=== PATIENT | male | born 2000 ===

== ENCOUNTER 2025-08-06 12:53 | Inpatient (IN) | payer SELFPAY ==
--- OUTSIDE RECORDS SUMMARY | 2025-08-05 16:00 | XMS_ITS | Encounter Summary ---
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 Collaboration (CKD-EPI) equation refit without adjustment for race. BUN/Creatinine Ratio 11.3 LAB CHEMISTRY METHOD 08/05/2025 5:22 PM [facility] Calcium 8.9 8.5 - 10.5 mg/dL LAB CHEMISTRY METHOD 08/05/2025 5:22 PM [facility] AST (SGOT) 94(H) 10 - 42 unit/L LAB CHEMISTRY METHOD 08/05/2025 5:22 PM [facility] ALT (SGPT) 201(H) 10 - 60 unit/L LAB CHEMISTRY METHOD 08/05/2025 5:22 PM [facility] Alkaline Phosphatase 64 42 - 121 unit/L LAB CHEMISTRY METHOD 08/05/2025 5:22 PM [facility] Total Protein 7.1 6.0 - 8.0 g/dL LAB CHEMISTRY METHOD 08/05/2025 5:22 PM [facility] Albumin 3.9 3.2 - 5.0 g/dL LAB CHEMISTRY METHOD 08/05/2025 5:22 PM [facility] Total Bilirubin 0.5 0.0 - 1.4 mg/dL LAB CHEMISTRY METHOD 08/05/2025 5:22 PM [facility] Blood Venous blood specimen / Unknown Venipuncture / Unknown 08/05/2025 4:20 PM EST 08/05/2025 4:43 PM EST us Oumar Zamora MD LAB BLOOD ORDERABLES Final Resul t [facility] [address] [place] [address], documented in this encounter Visit Diagnoses Diagnosis Suicidal ideation- Primary documented in this encounter Orders Consult Count Last Ordered Date First Orde red Date IP CONSULT TO CONSULTANT NURSE 1 08/05/2025 documented in this encounter Care Teams Commissioned Sales Associate Relationship Specialty Start Date End Date Physician, No Pcp PCP - General 08/05/25 documented as of this encounter
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
[2025-08-06 14:02] VITALS: BMI 38.4
[2025-08-06 14:54] VITALS: BP 137/79; PULSE 63; O2SAT 97
--- OUTSIDE RECORDS SUMMARY | 2025-08-06 15:37 | XMS_ITS | Clinical Summary ---
Author Organization [facility] [address] [facility] Address [address] [place] [phone] Phone Care Team Providers Care Boot Maker Name Role Phone Physician, No Pcp Primary Care Provider Unavaila ble Allergies Active Allergy Reactions Criticality Noted Date Comments Bee Venom Protein (Honey Bee) Anaphylaxis High 08/05 Medications No known medications Encounters Date Type Department Care Team Description 08/05/2025 4:00 PM EST - 08/06/2025 1:01 PM EST Emergency [facility] Emergency [address] [place] [id number] Oumar Zamora MD Kokkinos, Erika, MD Linnerooth, Warren, MD Suicidal ideation (Primary Dx) Discharge Disposition: Psychiatric Hospital from Last 3 Months Medical History Medical History Date Comments Bee sting allergy 12/26/2017 DX:Bee sting a llergy Adhd Bipolar disorder, unspecifie d ([facility] V24, [facility] V28) Social History Tobacco Use Types Packs/Day Years Used Date Smoking Tobacco: Never Smokeless Tobacco: Never Alcohol Use Standard Drinks/Week Comments No 0 (1 standard drink = 0.6 oz pur e alcohol) Sex and Gender Information Value Date Recorded Sex Assigned at Not on file Legal Sex Male 2:06 AM EST Gender Identity Not on file Sexual Orientation Not on file Obstetrics History Last Filed Vital Signs Vital Sign Reading [...] Mass Index 33 08/05/2025 4:45 PM EST Plan of Treatment Health Maintenance Due Date Last Done Comments DTaP,Tdap,and Td Vaccines (6 - Td or Tdap) 06/27/2023 06/27/2013, 03/16/2006, 03/04/2003, Additional history exists Depression Screening 10/02/2024 COVID-19 Vaccine ( season) 2025 Influenza Vaccine (#1) 2025 7, 08/10/2016, 08/06/2015, Additional history exists Cholesterol Screening (Lipid Panel) 08/05/2025 HIV Screening 08/05/2025 Hepatitis C Screening 08/05/2025 Social Influencers of Health Screening 08/05/2025 RSV Immunization Adult Patients (1 - 1-dose 75+ series) 2076 Pneumococcal Vaccine: Pediatrics (0 to 5 Years) and At-Risk Patients (6 to 49 Years) Aged Out 2001 No longer eligible based on patient's age to complete this topic HIB Vaccines Completed 01/16/2003, 12/31, 10/04/2002, Additional history exists Hepatitis B Vaccines Completed 08/11/2003, 10/04/2002, 2001 Hepatitis A Vaccines Completed 07/22/2004, 08/11/20 IPV Vaccines Completed 03/16/2006, 12/31, 10/04/2002, Additional history exists MMR Vaccines Completed 03/16/2006, 01/16/2003 Varicella Vaccines Completed 12/27/2007, 01/16/2003 HPV Vaccines Completed 08/10/2016, 12/2014, 09/11/2014 Meningococcal ACWY Vaccine Completed 12/05/2018, Meningococcal B Vaccine Aged Out No l onger eligible based on patient's age to complete this topic RSV Immunization Patients Under 20 months Aged Out No longer eligible based on patient's age to complete this topic Procedures Procedure Name Priority Date/Time Associated Diagnosis Comments METHADONE SCREEN, URINE STAT 08/05/2025 4:21 PM EST PHENCYCLIDINE, URINE STAT 08/05/2025 4:21 PM EST BUPRENORPHINE SCREEN, URINE STAT 08/05/2025 4:21 PM EST DRUG ABUSE SCREEN 8A PANEL, URINE STAT 08/05/2025 4:21 PM EST CBC WITH AUTO DIFFERENTIAL STAT 08/05/2025 4:20 PM EST SALICYLATE LEVEL STAT 08/05/2025 4:20 PM EST ACETAMINOPHEN LEVEL STAT 08/05/2025 4 :20 PM EST ETHANOL STAT 08/05/2025 4:20 PM EST COMPREHENSIVE METABOLIC PANEL STAT 08/05/2025 4:20 PM EST CBC AND DIFFERENTIAL STAT 08/05/2025 4:20 PM EST from Last 3 Months Results * (ABNORMAL) Drug abuse screen 8a panel, urine (08/05/2025 4:21 PM EST) Amphetamine Screen, Ur Negative Negative LAB CHEMISTRY METHOD 5 5:31 PM EST [facility] Comment:Certain OTC medicati ons containing ephedrine, phenylephrine, pseudoephedrine and phenylpropanolamine can cause false positive results. Barbiturate Screen, Ur Negative Negative LAB CHEMISTRY METHOD 5 5:31 PM EST [facility] Benzodiazepine Screen, Ur Negative Negative LAB CHEMISTRY METHOD 5 5:31 PM EST [facility] Cocaine Screen, Ur Negative Negative LAB CHEMISTRY METHOD 5 5:31 PM EST [facility] Opiate Screen, Ur Negative Negative LAB CHEMISTRY METHOD 5 5:31 PM EST [facility] Cannabinoid (THC) Screen, Ur Positive(A ) Negative LAB CHEMISTRY METHOD 5:31 PM EST [facility] Comment:Specimens from patie nts taking pantoprazole sodium (Protonix) have been shown to produce false positive results. Oxycodone Screen, Ur Negative Negative LAB CHEMISTRY METHOD 5 5:31 PM [facility] Fentanyl, Ur Negative Negative LAB CHEMISTRY METHOD 5 5:31 PM EST [facility] Urine Urine specimen obtained by clean catch procedure / Unknown Non-blood Collection / Unknown 08/05/2025 4:21 PM EST 08/05/2025 4:43 PM EST [facility] - 08/05/2025 5:31 PM EST Assay cutoffs: Amphetamines 1000 ng/mL Barbiturates 200 ng/mL Benzodiazepines 200 ng/mL Cocaine 300 ng/mL Fentanyl 1 ng/mL Opiates 300 ng/mL Oxycodone 100 ng/mL THC 50 ng/mL Semi-quantitative assay for screening purposes only. Unconfirmed screening result should not be used for non-medical purposes. *ALTERNATE METHOD CONFIRMATION DONE UPON REQUEST ONLY* Oumar Zamora MD LAB URINE ORDERABLES Final Resul t [facility] [address] [place] [address], * Buprenorphine screen, urine (08/05/2025 4:21 PM EST) Buprenorphine Screen Urine Negative Negative LAB CHEMISTRY METHOD 08/05/2025 5:31 PM EST [facility] Urine Urine specimen obtained by clean catch procedure / Unknown Non-blood Collection / Unknown 08/05/2025 4:21 PM EST 08/05/2025 4:43 PM EST [facility] - 08/05/2025 5:31 PM EST Assay cutoff 5 ng/mL Semi-quantitative assay for screening purposes only. Unconfirmed screening result should not be used for non-medical purposes. *ALTERNATE METHOD CONFIRMATION DONE UPON REQUEST ONLY* us Oumar Zamora MD LAB URINE ORDERABLES Final Resul t Performing Organization Address [facility] de Phone Number [facility] [address] [place] [address], [place] [phone] * Methadone, urine (08/05/2025 4:21 PM EST) Methadone Screen, Urine Negative Negative LAB CHEMISTRY METHOD 08/05/2025 5:31 PM EST [facility] Comment: Assay cutoff 300 ng/mL Semi-quantitative [...] ORDERABLES Final Resul t Performing Organization Address [facility] de Phone Number [facility] [address] [place] [address], [place] [phone] * Phencyclidine, urine (08/05/2025 4:21 PM EST) PCP Scrn, Ur Negative Negative LAB CHEMISTRY METHOD 08/05/2025 5:31 PM EST [facility] Comment: Assay cutoff 25 ng/mL Semi-quantitative [...] ORDERABLES Final Resul t Performing Organization Address City/[facility]/ZIP Co de Phone Number [facility] [address] [place] [address], * CBC auto differential (08/05/2025 4:20 PM EST) [facility] WBC 6.5 4.8 - 10.8 K/mcL LAB HEMETOLOGY METHOD 08/05/2025 4:52 PM EST [facility] RBC 4.90 4.50 - 5.50 M/mcL LAB HEMETOLOGY METHOD 08/05/2025 4:52 PM EST [facility] Hemoglobin 13.9 13.5 - 17.5 g/dL LAB HEMETOLOGY METHOD 08/05/2025 4:52 PM [facility] Hematocrit 43.3 42.0 - 54.0 % LAB HEMETOLOGY METHOD 08/05/2025 4:52 PM EST [facility] MCV 88.2 79.0 - 98.0 FL LAB HEMETOLOGY METHOD 08/05/2025 4:52 PM EST [facility] MCH 28.3 27.0 - 32.0 pcg LAB HEMETOLOGY METHOD 08/05/2025 4:52 PM EST [facility] MCHC 32.1 32.0 - 37.0 g/dL LAB HEMETOLOGY METHOD 08/05/2025 4:52 PM EST [facility] RDW 13.9 11.0 - 15.0 % LAB HEMETOLOGY METHOD 08/05/2025 4:52 PM [facility] Platelets 270 130 - 400 K/mcL LAB HEMETOLOGY METHOD 08/05/2025 4:52 PM [facility] MPV 9.4 7.0 - 11.0 FL LAB HEMETOLOGY METHOD 08/05/2025 4:52 PM [facility] NRBC 0.0 <1.0 % LAB HEMETOLOGY METHOD 08/05/2025 4:52 PM [facility] NRBC Absolute 0.00 <0.10 K/mcL LAB HEMETOLOGY METHOD 08/05/2025 4:52 PM [facility] Neutrophils Relative 62.1 % LAB HEMETOLOGY METHOD 08/05/2025 4:52 PM [facility] Lymphocytes Relative 27.5 % LAB HEMETOLOGY METHOD 08/05/2025 4:52 PM [facility] Monocytes Relative 9.0 % LAB HEMETOLOGY METHOD 08/05/2025 4:52 PM [facility] Eosinophils Relative 0.6 % LAB HEMETOLOGY METHOD 08/05/2025 4:52 PM [facility] Basophils Relative 0.5 % LAB HEMETOLOGY METHOD 08/05/2025 4:52 PM [facility] Immature Granulocytes Relative 0.3 % LAB HEMETOLOGY METHOD 08/05/2025 4:52 PM [facility] Neutrophils Absolute 4.02 1.50 - 7.00 K/mcL LAB HEMETOLOGY METHOD 08/05/2025 4:52 PM [facility] Lymphocytes Absolute 1.78 1.00 - 5.00 K/mcL LAB HEMETOLOGY METHOD 08/05/2025 4:52 PM [facility] Monocytes Absolute 0.58 0.20 - 1.00 K/mcL LAB HEMETOLOGY METHOD 08/05/2025 4:52 PM [facility] Eosinophils Absolute 0.04 0.00 - 0.50 K/mcL LAB HEMETOLOGY METHOD 08/05/2025 4:52 PM [facility] Basophils Absolute 0.03 0.00 - 0.20 K/mcL LAB HEMETOLOGY METHOD 08/05/2025 4:52 PM [facility] Immature Granulocytes Absolute 0.02 0.00 - 0.03 K/mcL LAB HEMETOLOGY METHOD 08/05/2025 4:52 PM EST [facility] Blood Venous blood specimen / Unknown Venipuncture / Unknown 08/05/2025 4:20 PM EST 08/05/2025 4:44 PM EST us Oumar Zamora MD LAB BLOOD ORDERABLES Final Resul t Performing Organization Address [facility] Co de Phone Number [facility] [address] [place] [address], [place] [phone] * Ethanol (08/05/2025 4:20 PM EST) Ethanol Level <3 0 - 10 mg/dL LAB CHEMISTRY METHOD 08/05/2025 5:20 PM EST [facility] Blood Venous blood specimen / Unknown Venipuncture / Unknown 08/05/2025 4:20 PM EST 08/05/2025 4:43 PM EST us Oumar Zamora MD LAB BLOOD ORDERABLES Final Resul t Performing Organization Address [facility] de Phone Number [facility] [address] [place] [address], [place] [phone] * (ABNORMAL) Acetaminophen level (08/05/2025 4:20 PM EST) Acetaminophen Level <2.0(L) 10.0 - 30.0 mcg/mL LAB CHEMISTRY METHOD 08/05/2025 5:20 PM EST [facility] Blood Venous blood specimen / Unknown Venipuncture / Unknown 08/05/2025 4:20 PM EST 08/05/2025 4:43 PM EST us Oumar Zamora MD LAB BLOOD ORDERABLES Final Resul t Performing Organization Address City/[facility] Co de Phone Number [facility] [address] [place] [address], [place] [phone] * (ABNORMAL) Salicylate level (08/05/2025 4:20 PM EST) Salicylate Level <1.7(L) 2.0 - 29.0 mg/dL LAB CHEMISTRY METHOD 08/05/2025 5:20 PM [facility] Blood Venous blood specimen / Unknown Venipuncture / Unknown 08/05/2025 4:20 PM EST 08/05/2025 4:43 PM EST Oumar Zamora MD LAB BLOOD ORDERABLES Final Resul t [facility] [address] [place] [address], * (ABNORMAL) Comprehensive metabolic panel (08/05/2025 4:20 PM EST) Pathologist [facility] Sodium 135 133 - 145 mmol/L LAB CHEMISTRY METHOD 08/05/2025 5:22 PM [facility] Potassium 3.8 3.5 - 5.5 mmol/L LAB CHEMISTRY METHOD 08/05/2025 5:22 PM [facility] Chloride 103 96 - 110 mmol/L LAB CHEMISTRY METHOD 08/05/2025 5:22 PM [facility] CO2 30 21 - 32 mmol/L LAB CHEMISTRY METHOD 08/05/2025 5:22 PM [facility] Anion Gap 2(L) 3 - 11 LAB CHEMISTRY METHOD 08/05/2025 5:22 PM [facility] Glucose 88 70 - 100 mg/dL LAB CHEMISTRY METHOD 08/05/2025 5:22 PM [facility] BUN 12 5 - 25 mg/dL LAB CHEMISTRY METHOD 08/05/2025 5:22 PM [facility] Creatinine 1.06 0.70 - 1.30 mg/dL LAB CHEMISTRY METHOD 08/05/2025 5:22 PM [facility] eGFR 101 >=60 mL/min/1. 73m2 LAB CHEMISTRY METHOD 08/05/2025 5:22 PM [facility] Comment:Calculation based on the Chronic Kidney Disease Epidemiology Collaboration (CKD-EPI) equation refit without adjustment for race. BUN/Creatinine Ratio 11.3 LAB CHEMISTRY METHOD 08/05/2025 5:22 PM [facility] Calcium 8.9 8.5 - 10.5 mg/dL LAB CHEMISTRY METHOD 08/05/2025 5:22 PM [facility] AST (SGOT) 94(H) 10 - 42 unit/L LAB CHEMISTRY METHOD 08/05/2025 5:22 PM [facility] ALT (SGPT) 201(H) 10 - 60 unit/L LAB CHEMISTRY METHOD 08/05/2025 5:22 PM [facility] Alkaline Phosphatase 64 42 - 121 unit/L LAB CHEMISTRY METHOD 08/05/2025 5:22 PM [facility] Total Protein 7.1 6.0 - 8.0 g/dL LAB CHEMISTRY METHOD 08/05/2025 5:22 PM [facility] Albumin 3.9 3.2 - 5.0 g/dL LAB CHEMISTRY METHOD 08/05/2025 5:22 PM [facility] Total Bilirubin 0.5 0.0 - 1.4 mg/dL LAB CHEMISTRY METHOD 08/05/2025 5:22 PM [facility] Blood Venous blood specimen / Unknown Venipuncture / Unknown 08/05/2025 4:20 PM EST 08/05/2025 4:43 PM EST us Oumar Zamora MD LAB BLOOD ORDERABLES Final Resul t [facility] [address] [place] [address], [place] [phone] from Last 3 Months Care Teams Boot Maker Relationship Specialty Start Date End Date Physician, No Pcp PCP - General 08/05/25
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
[2025-08-06 20:00] VITALS: BP 139/60; PULSE 73; RESP 16; TEMP 36.5; O2SAT 96
[2025-08-07 07:00] VITALS: BMI 38.5
[2025-08-07 07:49] VITALS: BP 135/81; PULSE 64; RESP 14; TEMP 36.4; O2SAT 97
[2025-08-07 08:28] LABS: Hemoglobin A1C 128.8022 umol/L; Total Hemoglobin (HGBA1C) 4025.7036 umol/L
[2025-08-07 08:43] LABS: Alanine Aminotransferase 150 U/L (0-40); Albumin Level 4.8 g/dL (3.5-5.0); Alkaline Phosphatase 64 U/L (39-117); Anion Gap 14 (12-20); Aspartate Amino Transferase 52 U/L (5-37); Blood Urea Nitrogen 16 mg/dL (9-16); Calcium 9.3 mg/dL (8.4-10.2); Carbon Dioxide 26 mmol/L (22-29); Chloride 103 mmol/L (96-108); Cholesterol 255 mg/dL (<200); Creatinine Clr Calc Pharmacy 141.8; Estimated Glomerular Filt Rate > 60; HDL Cholesterol 49 mg/dL (>40); Potassium 4.6 mmol/L (3.3-5.1); Sodium 138 mmol/L (135-145); Total Protein 7.8 g/dL (6.5-8.0); Triglycerides 80 mg/dL (<150)
--- NOTE | 2025-08-07 09:18 | HO.PSYCHPN ---
Subjective Subjective Date of Service: 08/07/25 Reason For Visit: crisis Subjective Notes: 3 Day Interim History: Keeping to self. In room most of day. medication compliant. 3 day notice up on 08/11/25. Patient reports feeling pretty good ; denies SI/HI/VH/AH. Patient reports he visited with his girlfriend today and visit went well. He report sleeping well last night; per nursing , slept 8 hours last night. denies any side effects from Depakote. Increased Depakote ER to 1000mg PO bedtime; pt aware. Encouraged to attend groups. Medication Compliance: Yes Side effects from medications: No Attending Groups: No Mental Status Exam Mental Status Exam Narrative: Pt is alert and oriented; behavior is cooperative and calm; dressed in casual attire; mood is described as good ; eye contact appropriate; Speech is normal rate, volume and not pressured; thought process is organized; Thought content is on discharge; denies SI/HI/VH/AH. Diagnostics Vital Signs (24Hr): Vital Signs - 24 hr 08/06/25 14:54 08/06/25 20:00 08/07/25 07:49 Temperature 97.7 F 97.6 F Pulse Rate 63 73 64 Respiratory Rate 16 14 Blood Pressure 137/79 139/60 135/81 Pulse Oximetry 97 96 97 Oxygen Delivery Method Room Air Room Air Room Air BMI result Body Mass Index 38.5 Labs 08/07/25 07:55 Labs: Laboratory Results - last 48 hr 08/07/25 07:55 Sodium 138 Potassium 4.6 Chloride 103 Carbon Dioxide 26 Anion Gap 14 BUN 16 Creatinine 1.02 Estim Creat Clear Calc 141.8 Estimated GFR > 60 Random Glucose 107 Estimat Average Glucose 100 Hemoglobin A1c % 5.1 Calcium 9.3 Total Bilirubin 0.6 AST 52 H ALT 150 H Alkaline Phosphatase 64 Total Protein 7.8 Albumin 4.8 Triglycerides 80 Cholesterol 255 H LDL Cholesterol, Calc 190 H HDL Cholesterol 49 Medications Medications Current Medications Acetaminophen (Acetaminophen 325 Mg Tablet) 650 mg PO Q6H PRN PRN Reason: Headache/Pain, Scale 1-10 Al Hydroxide/Mg Hydroxide (Magnesium Hydrox/Alum Hydrox 30 Ml Oral.Susp) 30 ml PO Q6H PRN PRN Reason: Heartburn/Nausea Divalproex Sodium (Divalproex Sodium Er 500 Mg Tab.Er.24h) 500 mg PO BEDTIME MAHIN Hydroxyzine HCl (Hydroxyzine Hcl 25 Mg Tablet) 25 mg PO Q6H PRN PRN Reason: mild anxiety Magnesium Hydroxide (Milk Of Magnesia 30 Ml Oral.Susp) 30 ml PO DAILY PRN PRN Reason: Constipation Nicotine (Nicotine 21 Mg Patch.Td24) 21 mg TRANSDERMA DAILY [facility] Last Admin: 08/07/25 08:31 Dose: Not Given Nicotine Polacrilex (Nicotine Polacrilex 2 Mg Gum) 4 mg BUCCAL Q2H PRN PRN Reason: Nicotine Cravings Trazodone HCl (Trazodone Hcl 50 Mg Tablet) 50 mg PO BEDTIME MRX1 PRN PRN Reason: Insomnia Allergies Allergies Allergy/AdvReac Type Severity Reaction Status Date / Time bee pollen (bee stings) Allergy Unknown Verified 08/06/25 13:06 Assessment & Plan Assessment & Plan (1) Bipolar disorder: Status: Acute Code(s): F31.9 - Bipolar disorder, unspecified (2) ADHD: Status: Acute Code(s): F90.9 - Attention-deficit hyperactivity disorder, unspecified type (3) Autism spectrum disorder: Status: Acute Code(s): F84.0 - Autistic disorder Plan Patient is a 25-year-old male with history of bipolar disorder, ADHD and autism spectrum disorder who presented to ER due to suicidal ideation with a plan to overdose on medications. Plan: CV 5 minute safety checks Obtain collateral Start: Depakote ER 500mg PO bedtime Encourage groups Referral to outpatient psychiatric providers Discharge planning 08/07: Keeping to self. In room most of day. medication compliant. 3 day notice up on 08/11/25. Patient reports feeling pretty good ; denies SI/HI/VH/AH. Patient reports he visited with his girlfriend today and visit went well. He report sleeping well last night; per nursing , slept 8 hours last night. denies any side effects from Depakote. Increased Depakote ER to 1000mg PO bedtime; pt aware. Encouraged to attend groups. Patient educated on: diagnosis, medication risk/benefits and therapeutic strategies Reason for continued inpatient stay Substantial Risk for: med/psych decompensation Time Spent With Patient Time: Total time managing care of this patient today _20___ minutes.
[2025-08-07 11:46] LABS: Ammonia 30 umol/L (13-55)
[2025-08-07 11:55] LABS: Alanine Aminotransferase 142 U/L (0-40); Albumin Level 4.7 g/dL (3.5-5.0); Alkaline Phosphatase 60 U/L (39-117); Aspartate Amino Transferase 47 U/L (5-37); Total Protein 7.7 g/dL (6.5-8.0)
[2025-08-07 20:00] VITALS: BP 126/66; PULSE 59; RESP 18; TEMP 37.1; O2SAT 98
[2025-08-08 08:00] VITALS: BP 135/81; PULSE 61; RESP 18; TEMP 36.8; O2SAT 98
--- NOTE | 2025-08-08 08:43 | HO.PSYCHPN ---
Subjective Subjective Date of Service: 08/08/25 Reason For Visit: crisis Subjective Notes: 3 Day Interim History: Attending groups. 3 day notice up on 08/11/25. Patient continues to report feeling good ; guarded during interaction. denies SI/HI/VH/AH. denies any side effects from Depakote. Depakote level to be drawn on Monday; pt aware. Continue tx plan. Medication Compliance: Yes Side effects from medications: No Attending Groups: Yes Mental Status Exam Mental Status Exam Narrative: Pt is alert and oriented; behavior is cooperative and calm; dressed in casual attire; mood is described as good ; eye contact appropriate; Speech is normal rate, volume and not pressured; thought process is organized; Thought content is on discharge; denies SI/HI/VH/AH. Diagnostics Vital Signs (24Hr): Vital Signs - 24 hr 08/07/25 20:00 08/08/25 08:00 Temperature 98.7 F 98.2 F Pulse Rate 59 61 Respiratory Rate 18 18 Blood Pressure 126/66 135/81 Pulse Oximetry 98 98 Oxygen Delivery Method Room Air Room Air BMI result Body Mass Index 38.5 Labs 08/07/25 07:55 Labs: Laboratory Results - last 48 hr 08/07/25 08/07/25 07:55 11:20 Sodium 138 Potassium 4.6 Chloride 103 Carbon Dioxide 26 Anion Gap 14 BUN 16 Creatinine 1.02 Estim Creat Clear Calc 141.8 Estimated GFR > 60 Random Glucose 107 Estimat Average Glucose 100 Hemoglobin A1c % 5.1 Calcium 9.3 Total Bilirubin 0.6 0.5 Direct Bilirubin 0.1 AST 52 H 47 H ALT 150 H 142 H Alkaline Phosphatase 64 60 Ammonia 30 Total Protein 7.8 7.7 Albumin 4.8 4.7 Triglycerides 80 Cholesterol 255 H LDL Cholesterol, Calc 190 H HDL Cholesterol 49 Medications Medications Current Medications Acetaminophen (Acetaminophen 325 Mg Tablet) 650 mg PO Q6H PRN PRN Reason: Headache/Pain, Scale 1-10 Al Hydroxide/Mg Hydroxide (Magnesium Hydrox/Alum Hydrox 30 Ml Oral.Susp) 30 ml PO Q6H PRN PRN Reason: Heartburn/Nausea Divalproex Sodium (Divalproex Sodium Er 500 Mg Tab.Er.24h) 1,000 mg PO BEDTIME MAHIN Last Admin: 08/07/25 21:36 Dose: 1,000 mg Hydroxyzine HCl (Hydroxyzine Hcl 25 Mg Tablet) 25 mg PO Q6H PRN PRN Reason: mild anxiety Magnesium Hydroxide (Milk Of Magnesia 30 Ml Oral.Susp) 30 ml PO DAILY PRN PRN Reason: Constipation Olanzapine (Olanzapine 5 Mg Tablet) 5 mg PO Q4H PRN PRN Reason: agitation Trazodone HCl (Trazodone Hcl 50 Mg Tablet) 50 mg PO BEDTIME MRX1 PRN PRN Reason: Insomnia Allergies Allergies Allergy/AdvReac Type Severity Reaction Status Date / Time bee pollen (bee stings) Allergy Unknown Verified 08/06/25 13:06 Assessment & Plan Assessment & Plan (1) Bipolar disorder: Status: Acute Code(s): F31.9 - Bipolar disorder, unspecified (2) ADHD: Status: Acute Code(s): F90.9 - Attention-deficit hyperactivity disorder, unspecified type (3) Autism spectrum disorder: Status: Acute Code(s): F84.0 - Autistic disorder Plan Patient is a 25-year-old male with history of bipolar disorder, ADHD and autism spectrum disorder who presented to ER due to suicidal ideation with a plan to overdose on medications. Plan: CV 5 minute safety checks Obtain collateral Start: Depakote ER 500mg PO bedtime Encourage groups Referral to outpatient psychiatric providers Discharge planning 08/07: Keeping to self. In room most of day. medication compliant. 3 day notice up on 08/11/25. Patient reports feeling pretty good ; denies SI/HI/VH/AH. Patient reports he visited with his girlfriend today and visit went well. He report sleeping well last night; per nursing , slept 8 hours last night. denies any side effects from Depakote. Increased Depakote ER to 1000mg PO bedtime; pt aware. Encouraged to attend groups. 08/08: Attending groups. 3 day notice up on 08/11/25. Patient continues to report feeling good ; guarded during interaction. denies SI/HI/VH/AH. denies any side effects from Depakote. Depakote level to be drawn on Monday; pt aware. Continue tx plan. Patient educated on: diagnosis, medication risk/benefits and therapeutic strategies Reason for continued inpatient stay Substantial Risk for: med/psych decompensation Time Spent With Patient Time: Total time managing care of this patient today _20___ minutes.
[2025-08-08 20:00] VITALS: BP 129/66; PULSE 63; RESP 18; TEMP 36.4; O2SAT 100
[2025-08-09 08:00] VITALS: BP 127/83; PULSE 83; RESP 16; TEMP 36.9; O2SAT 98
[2025-08-09 20:00] VITALS: BP 139/75; PULSE 81; RESP 18; TEMP 37.1; O2SAT 97
--- NOTE | 2025-08-09 22:50 | HO.PSYCHPN ---
Subjective Subjective Date of Service: 08/09/25 Reason For Visit: crisis Subjective Notes: 3 Day Healthcare Proxy: No Guardianship: No Medical Problems Affecting Mental Status: No Interim History: Medical record and nursing notes reviewed; case discussed during rounds with team/nursing staff, and met with patient for supportive therapy/psychoeducation, as well as medication management. Patient is visible, in and out of his room, pleasant upon approach, denies safety concerns, denied depression or anxiety. Stated he feels safe. Denies side effects from medication. No aggressive or sexually inappropriate behavior. Medication compliant, requested trazodone as needed for sleep last night. Per nursing patient slept for 7+ hours. He is on 3 day notice which is up on Monday. He is looking forward to be discharged soon. Medication Compliance: Yes Side effects from medications: No Attending Groups: Intermittent Review of Systems Acute medical concerns: No Medical Review of Systems: unchanged Review of Systems Review of Systems Denies any shortness of breath, chest pain, headaches, dysuria, abdominal pain or discomfort, nausea, vomiting or diarrhea. Denies fever or chills. Yes all other systems are reviewed and are negative Mental Status Exam Mental Status Exam Narrative: Pt is alert and oriented; behavior is cooperative and calm; dressed in casual attire; mood is described as good ; eye contact appropriate; Speech is normal rate, volume and not pressured; thought process is organized; Thought content is on discharge; denies SI/HI/VH/AH. Diagnostics Vital Signs (24Hr): Vital Signs - 24 hr 08/09/25 08:00 08/09/25 20:00 Temperature 98.4 F 98.8 F Pulse Rate 83 81 Respiratory Rate 16 18 Blood Pressure 127/83 139/75 Pulse Oximetry 98 97 Oxygen Delivery Method Room Air Room Air BMI result Body Mass Index 38.5 Labs 08/07/25 07:55 Medications Medications Current Medications Acetaminophen (Acetaminophen 325 Mg Tablet) 650 mg PO Q6H PRN PRN Reason: Headache/Pain, Scale 1-10 Al Hydroxide/Mg Hydroxide (Magnesium Hydrox/Alum Hydrox 30 Ml Oral.Susp) 30 ml PO Q6H PRN PRN Reason: Heartburn/Nausea Divalproex Sodium (Divalproex Sodium Er 500 Mg Tab.Er.24h) 1,000 mg PO BEDTIME MAHIN Last Admin: 08/09/25 20:55 Dose: 1,000 mg Hydroxyzine HCl (Hydroxyzine Hcl 25 Mg Tablet) 25 mg PO Q6H PRN PRN Reason: mild anxiety Magnesium Hydroxide (Milk Of Magnesia 30 Ml Oral.Susp) 30 ml PO DAILY PRN PRN Reason: Constipation Olanzapine (Olanzapine 5 Mg Tablet) 5 mg PO Q4H PRN PRN Reason: agitation Trazodone HCl (Trazodone Hcl 50 Mg Tablet) 50 mg PO BEDTIME MRX1 PRN PRN Reason: Insomnia Last Admin: 08/09/25 22:05 Dose: 50 mg Allergies Allergies Allergy/AdvReac Type Severity Reaction Status Date / Time bee pollen (bee stings) Allergy Unknown Verified 08/06/25 13:06 Assessment & Plan Assessment & Plan (1) Bipolar disorder: Status: Acute Code(s): F31.9 - Bipolar disorder, unspecified (2) ADHD: Status: Acute Code(s): F90.9 - Attention-deficit hyperactivity disorder, unspecified type (3) Autism spectrum disorder: Status: Acute Code(s): F84.0 - Autistic disorder Plan Patient is a 25-year-old male with history of bipolar disorder, ADHD and autism spectrum disorder who presented to ER due to suicidal ideation with a plan to overdose on medications. Plan: CV 5 minute safety checks Obtain collateral Start: Depakote ER 500mg PO bedtime Encourage groups Referral to outpatient psychiatric providers Discharge planning 08/07: Keeping to self. In room most of day. medication compliant. 3 day notice up on 08/11/25. Patient reports feeling pretty good ; denies SI/HI/VH/AH. Patient reports he visited with his girlfriend today and visit went well. He report sleeping well last night; per nursing , slept 8 hours last night. denies any side effects from Depakote. Increased Depakote ER to 1000mg PO bedtime; pt aware. Encouraged to attend groups. 08/08: Attending groups. 3 day notice up on 08/11/25. Patient continues to report feeling good ; guarded during interaction. denies SI/HI/VH/AH. denies any side effects from Depakote. Depakote level to be drawn on Monday; pt aware. Continue tx plan. 08/09/25: Patient is visible, in and out of his room, pleasant upon approach, denies safety concerns, denied depression or anxiety. Stated he feels safe. Denies side effects from medication. No aggressive or sexually inappropriate behavior. Medication compliant, requested trazodone as needed for sleep last night. Per nursing patient slept for 7+ hours. He is on 3 day notice which is up on Monday. He is looking forward to be discharged soon. Patient educated on: diagnosis, medication risk/benefits and therapeutic strategies Informed Consent: understands Reason for continued inpatient stay Substantial Risk for: med/psych decompensation Time Spent With Patient Time: Total time managing care of this patient today ____ minutes.
[2025-08-10 08:00] VITALS: BP 124/76; PULSE 72; RESP 14; TEMP 36.6; O2SAT 99
[2025-08-10 08:22] LABS: Ammonia 30 umol/L (13-55)
[2025-08-10 08:32] LABS: Alanine Aminotransferase 80 U/L (0-40); Albumin Level 4.8 g/dL (3.5-5.0); Alkaline Phosphatase 61 U/L (39-117); Aspartate Amino Transferase 32 U/L (5-37); Total Protein 7.5 g/dL (6.5-8.0)
[2025-08-10 20:00] VITALS: BP 151/71; PULSE 68; RESP 16; TEMP 36.8; O2SAT 99
--- NOTE | 2025-08-10 20:20 | HO.PSYCHPN ---
Subjective Subjective Date of Service: 08/10/25 Reason For Visit: crisis Subjective Notes: 3 Day Healthcare Proxy: No Guardianship: No Medical Problems Affecting Mental Status: No Interim History: Medical record and nursing notes reviewed; case discussed during rounds with team/nursing staff, and met with patient for supportive therapy/psychoeducation, as well as medication management. Patient reports no issues with sleep or appetite. Denies side effects from medications. Looking forward to be discharged tomorrow. Would like to back to work and want therapist. Visible, pleasant, cooperative. Appear happy, friendly with bright affect. Denies anixeyt/ depresion or other safety concerns. Medication Compliance: Yes Side effects from medications: No Attending Groups: Intermittent Review of Systems Acute medical concerns: No Medical Review of Systems: unchanged Review of Systems Review of Systems Denies any shortness of breath, chest pain, headaches, dysuria, abdominal pain or discomfort, nausea, vomiting or diarrhea. Denies fever or chills. Yes all other systems are reviewed and are negative Mental Status Exam Mental Status Exam Narrative: Pt is alert and oriented; behavior is cooperative and calm; dressed in casual attire; mood is described as good ; eye contact appropriate; Speech is normal rate, volume and not pressured; thought process is organized; Thought content is on discharge; denies SI/HI/VH/AH. Diagnostics Vital Signs (24Hr): Vital Signs - 24 hr 08/10/25 08:00 Temperature 97.9 F Pulse Rate 72 Respiratory Rate 14 Blood Pressure 124/76 Pulse Oximetry 99 Oxygen Delivery Method Room Air BMI result Body Mass Index 38.5 Labs 08/07/25 07:55 Labs: Laboratory Results - last 48 hr 08/10/25 08:04 Total Bilirubin 0.4 Direct Bilirubin 0.1 AST 32 ALT 80 H Alkaline Phosphatase 61 Ammonia 30 Total Protein 7.5 Albumin 4.8 Valproic Acid 32.1 L Medications Medications Current Medications Acetaminophen (Acetaminophen 325 Mg Tablet) 650 mg PO Q6H PRN PRN Reason: Headache/Pain, Scale 1-10 Al Hydroxide/Mg Hydroxide (Magnesium Hydrox/Alum Hydrox 30 Ml Oral.Susp) 30 ml PO Q6H PRN PRN Reason: Heartburn/Nausea Divalproex Sodium (Divalproex Sodium Er 500 Mg Tab.Er.24h) 1,000 mg PO BEDTIME MAHIN Last Admin: 08/10/25 20:17 Dose: 1,000 mg Hydroxyzine HCl (Hydroxyzine Hcl 25 Mg Tablet) 25 mg PO Q6H PRN PRN Reason: mild anxiety Magnesium Hydroxide (Milk Of Magnesia 30 Ml Oral.Susp) 30 ml PO DAILY PRN PRN Reason: Constipation Olanzapine (Olanzapine 5 Mg Tablet) 5 mg PO Q4H PRN PRN Reason: agitation Trazodone HCl (Trazodone Hcl 50 Mg Tablet) 50 mg PO BEDTIME MRX1 PRN PRN Reason: Insomnia Last Admin: 08/10/25 20:17 Dose: 50 mg Allergies Allergies Allergy/AdvReac Type Severity Reaction Status Date / Time bee pollen (bee stings) Allergy Unknown Verified 08/06/25 13:06 Assessment & Plan Assessment & Plan (1) Bipolar disorder: Status: Acute Code(s): F31.9 - Bipolar disorder, unspecified (2) ADHD: Status: Acute Code(s): F90.9 - Attention-deficit hyperactivity disorder, unspecified type (3) Autism spectrum disorder: Status: Acute Code(s): F84.0 - Autistic disorder Plan Patient is a 25-year-old male with history of bipolar disorder, ADHD and autism spectrum disorder who presented to ER due to suicidal ideation with a plan to overdose on medications. Plan: CV 5 minute safety checks Obtain collateral Start: Depakote ER 500mg PO bedtime Encourage groups Referral to outpatient psychiatric providers Discharge planning 08/07: Keeping to self. In room most of day. medication compliant. 3 day notice up on 08/11/25. Patient reports feeling pretty good ; denies SI/HI/VH/AH. Patient reports he visited with his girlfriend today and visit went well. He report sleeping well last night; per nursing , slept 8 hours last night. denies any side effects from Depakote. Increased Depakote ER to 1000mg PO bedtime; pt aware. Encouraged to attend groups. 08/08: Attending groups. 3 day notice up on 08/11/25. Patient continues to report feeling good ; guarded during interaction. denies SI/HI/VH/AH. denies any side effects from Depakote. Depakote level to be drawn on Monday; pt aware. Continue tx plan. 08/09/25: Patient is visible, in and out of his room, pleasant upon approach, denies safety concerns, denied depression or anxiety. Stated he feels safe. Denies side effects from medication. No aggressive or sexually inappropriate behavior. Medication compliant, requested trazodone as needed for sleep last night. Per nursing patient slept for 7+ hours. He is on 3 day notice which is up on Monday. He is looking forward to be discharged soon. 08/10/25: Patient reports no issues with sleep or appetite. Denies side effects from medications. Looking forward to be discharged tomorrow. Would like to back to work and want therapist. Visible, pleasant, cooperative. Appear happy, friendly with bright affect. Denies anixeyt/ depresion or other safety concerns, slept for 7 hours. Patient educated on: medication risk/benefits and therapeutic strategies Informed Consent: understands Reason for continued inpatient stay Substantial Risk for: med/psych decompensation Time Spent With Patient Time: Total time managing care of this patient today ____ minutes.
[2025-08-11 07:35] VITALS: BP 130/74; PULSE 70; TEMP 36.4; O2SAT 98
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
--- NOTE | 2025-08-11 10:50 | PC.NURSE ---
Patient engaged easily. Reports he is ready for discharge. Denies mood disturbance, denies depression or sadness. Denies anxiety. Denies SI/HI plan or intent. Denies violent or aggressive ideation. Denies perceptual disturbances, no overt psychosis or expressed delusions. Discharge paperwork reviewed with patient, reports understanding. Reviewed walk in referrals, in addition to [place] walk in medical clinic. Information provided regarding obtaining PCP through [facility]. Information reviewed regarding [facility] application. All belongings taken with patient. Crisis numbers provided. Resource booklet provided. Reports understanding.
== END 2025-08-11 10:42 | disposition home or self-care (01) | DRG 885 ==
PROVIDERS: Admitting Provider Psychiatry & Neurology Psychiatry; Responsible Provider Registered Nurse; Visit Provider Psychiatry & Neurology Psychiatry
DX: F31.9 Bipolar disorder, unspecified (principal); F84.0 Autistic disorder; F90.9 Attention-deficit hyperactivity disorder, unspecified type; F63.1 Pyromania
CPT/HCPCS: 36415; 80053; 80061; 80076; 80164; 82140; 83036

== ENCOUNTER → 2025-08-06 12:53 | Outpatient (BNV) | payer MEDICAID, SELFPAY | PROVIDERS: Admitting Provider Psychiatry & Neurology Psychiatry; Visit Provider Nurse Practitioner Family | DX: F31.9 Bipolar disorder, unspecified (principal) | CPT/HCPCS: 99221 ==

== ENCOUNTER → 2025-08-06 12:53 | Outpatient (BNV) | payer OTHER, SELFPAY | PROVIDERS: Admitting Provider Psychiatry & Neurology Psychiatry; Responsible Provider Registered Nurse; Visit Provider Registered Nurse | DX: F31.9 Bipolar disorder, unspecified (principal); F90.9 Attention-deficit hyperactivity disorder, unspecified type; F84.0 Autistic disorder | CPT/HCPCS: 99232 ==